=== PATIENT | male | born 1985 | race Caucasian/White ===

== ENCOUNTER 2017-05-09 16:37 | Inpatient (IN) | payer BC, OTHER ==
[~2017-05-09] VITALS: Ht 170.2 cm; Wt 61.2 kg
[2017-05-10 01:30] LABS: *AMPHETAMINE, URINE POSITIVE (NEGATIVE); *BARBITURATE, URINE NEGATIVE (NEGATIVE); *CANNABINOID, URINE POSITIVE (NEGATIVE); *COCCAINE, URINE NEGATIVE (NEGATIVE); *OPIATE, URINE POSITIVE (NEGATIVE); *PHENCYCLIDINE SCREEN,URINE NEGATIVE (NEGATIVE)
--- NOTE | 2017-05-10 01:30 | NUR ---
PRE-ADMISSION NOTE: Patient assessed in intake office at 0130 on 05/10/2017. Patient is ambulatory with steady gate, stable, AOx4, speech is clear. Patient states that he is here, in the [facility] "first time for Safety Detox from Benzodiazepines, Heroin and Meth". Patient states that he last used: Heroin IV: "I used 0,2 gram heroine in one syringe with Meth 0.2 gram on 05/10/2017 at 2245". Xanax PO: "2,67 mg on 05/10/2017 at 1800". Marijuana smoke: " 1 ball on 05/10/2017 at 1800" Patient's COWS 8, CIWA 7. The patient presented with anxiety, agitation, nervousness, , diaphoresis, abdominal cramps, headache, restless legs, and fatigue. Patient denies SI/HI. Breathing is even and unlabored. Patient denies SOB and chest pain. VS: T: 98'2; BP: 143/90; HR: 111; RR: 18; O2 SAT: 94%. Patient denies pain at this time. Patient reports NKA. Patient placed on Full Code, Regular Diet, Fall and Seizures Precautions. Patients denies Seizures Hx r/t withdrawal from substances. UDS test collected and sent to lab. Patient instructed on unit protocol of vitals Q4H and COWS/CIWA assessments. Patient verbalized understanding and agreement. Patient also instructed on policy regarding destruction of any controlled substances/prescriptions brought to facility, and handling of all medications. Patient verbalized understanding and agreement. Will complete admission assessment when patient is brought up to unit.
--- NOTE | 2017-05-10 01:39 | NUR ---
ADMISSION NOTE: New admission is a 31 year old male on serenity floor at 0139 on 05/10/2017. Patient states that he is here, in the [facility] "first time for Safety Detox from Xanax, Heroin, Meth, and Marijuana". Pre-assessment completed in intake. UDS Test provided. VS completed upon admission: VS: T: 98'2; BP: 143/90; HR: 111; RR: 18; O2 SAT: 94%. Patient reports NKA. Patient placed on Full Code, Regular Diet, Fall and Seizures Precautions. Patients denies Seizures Hx r/t withdrawal from substances. COWS 8, CIWA 7. The patient presented with anxiety, agitation, nervousness, diaphoresis, restless legs, insomnia and fatigue. Patient denies SI/HI. Height: 67 in, weight by standing scale: 135 lbs. Respirations are even and unlabored. Patient denies SOB and chest pain. Patient has no PCP. Patient admitted under the care of Carlin Plummer MD. Patient reports the following substances use: Xanax PO: Patient reports taking " during 14 years. 4 mg every other day since 2012. Last use was 2.67 mg on 05/09/17 at 1800". Patient reports relapsing "for years ago, and has been using at this rate for four years". Methamphetamine IV: Patient reports taking " during 3 years. Recently, 1 gram every day. Last use was 0.2 gram on 05/09/17 at 2245". Patient reports relapsing "for years ago, and has been using at this rate for four years". Heroin IV: "1 gram every day. Last use was 0.2 gram on 05/09/17 at 2245". Patient reports relapsing "for years ago, and has been using at this rate for four years". Marijuana smoke: Patient reports taking "a lot every day. Last use was 1 ball on 05/09/17 at 1800". Patient reports relapsing four months ago, and has been using at this rate for our months. Patient reports smoking "4 cigarettes daily during 20 years". Written smoking cessation education provided. Patient Verbalizes understanding. Patient did not brought home medications: verbally he explained that he "forgot in girlfriend's car all home medications." Home Medications: "Depakote PO 500 mg at 0900 and 2100". "Lexapro PO 20 mg 0900". "Advair/puff: 1 puff BID PRN" . "Albuterol, PRN". "Colazal PO 750 mg/3 tabs daily". Patient reports treatment history: "[facility] [place] ", [place] ,2010. Patient report being sober for 1 year and eight months since October, to June,". Patient reports Past Medical History: Anxiety, Depression, Asthma, RA, Ulcerative colitis, Ankylosing Spondylitis, Substance Abuse. Patient is ambulatory with steady gate, stable, AOx4, speech is soft and clear. Respirations unlabored and even. Lungs Sounds are clear bilaterally. Bowel Sounds active in all x4 quadrants. Last Bowel Movement was "05/09/17 at 1500". Skin is warm and dry to touch. Patient has on the back of the neck, on the buttocks, on the bilateral upper and lower extremities scabs from methamphetamine injections. Encouraged fluids as tolerated. Patient oriented to floor and room, explained how to use call light. Patient verbalized understanding. Safety measures on place. Call light within reach, bed in lowest position and locked, padded rails up bilaterally rails up bilaterally. Will continue to monitor closely.
[2017-05-10] MEDS ORDERED: diphenhydrAMINE 50 MG CAPSULE PO PRN (02:30)
[2017-05-10] MEDS ORDERED: LORAZEPAM 2 MG/1 ML VIAL IM PRN (02:30)
[2017-05-10] MEDS ORDERED: ACETAMINOPHEN 325 MG TABLET PO PRN (02:30)
[2017-05-10] MEDS ORDERED: DICYCLOMINE HCL 20 MG TABLET PO PRN (02:30)
[2017-05-10] MEDS ORDERED: ONDANSETRON ODT 4 MG TAB.RAPDIS SL PRN (02:30)
[2017-05-10] MEDS ORDERED: BUPRENORPHINE HCL 2 MG TAB.SUBL SL PRN (02:30)
[2017-05-10] MEDS ORDERED: MAG HYDROX/AL HYDROX/SIMETH 30 ML LIQUID UDC PO PRN (02:30)
[2017-05-10] MEDS ORDERED: LOPERAMIDE HCL 2 MG CAPSULE PO PRN ×2 (02:30)
[2017-05-10] MEDS ORDERED: MIRALAX 17 GM POWD.PACK PO PRN (02:30)
[2017-05-10] MEDS ORDERED: MAGNESIUM HYDROXIDE 30 ML LIQUID UDC PO PRN (02:30)
[2017-05-10] MEDS ORDERED: IBUPROFEN 400 MG TABLET PO PRN (02:30)
[2017-05-10] MEDS ORDERED: CLONIDINE HCL 0.1 MG TABLET PO PRN (02:30)
[2017-05-10] MEDS ORDERED: LORAZEPAM 1 MG TABLET PO PRN ×2 (02:30)
[2017-05-10] MEDS ORDERED: ONDANSETRON 4 MG/2 ML VIAL IM PRN (02:30)
[2017-05-10 03:12] LABS: BASOPHILS # (AUTO) 0.1 K/uL (0.0-8.0); BASOPHILS % (AUTO) 1.3 % (0.0-2.0); EOSINOPHILS # (AUTO) 0.4 K/uL (0.0-0.7); EOSINOPHILS % (AUTO) 5.3 % (0.0-7.0); HEMATOCRIT 47.4 % (40-50); LYMPHOCYTES # (AUTO) 2.7 K/UL (0.8-4.8); LYMPHOCYTES % (AUTO) 31.9 % (20.5-51.5); MEAN CORPUSCULAR HEMOGLOBIN 27.8 UUG (27.0-31.0); MEAN CORPUSCULAR HGB CONC 32 g/dL (32.0-37.0); MEAN CORPUSCULAR VOLUME 87.9 FL (82.0-92.0); MONOCYTES # (AUTO) 0.9 K/UL (0.1-1.30); MONOCYTES % (AUTO) 10.5 % (0.0-11.0); NEUTROPHILS # (AUTO) 4.4 K/UL (1.8-8.9); PLATELET COUNT (AUTO) 235 K/UL (150-450); RED BLOOD CELL COUNT(AUTO) 5.39 MIL/UL (4.7-6.1); WHITE BLOOD COUNT (AUTO) 8.5 K/UL (4.0-11.2)
[2017-05-10 03:20] LABS: ALANINE AMINOTRANSFERASE 52 U/L (16-63); ALKALINE PHOSPHATASE 91 U/L (50-136); AMYLASE 44 U/L (25-115); ASPARTATE AMINOTRANSFERASE 36 U/L (15-37); BILIRUBIN,TOTAL 0.3 mg/dL (0.2-1.0); CARBON DIOXIDE 38 mmol/L (21-32); CHLORIDE 100 mmol/L (98-107); GLUCOSE 89 mg/dL (74-106); LIPASE 89 U/L (73-393); MAGNESIUM 2.2 mg/dL (1.8-2.4); POTASSIUM 4.7 mmol/L (3.5-5.1); TOTAL PROTEIN, SERUM 7.8 g/dL (6.4-8.2); UREA NITROGEN, BLOOD 17 mg/dL (7-18)
[2017-05-10 03:31] LABS: THYROID STIMULATING HORMONE 1.734 mIU/mL (0.358-3.740)
[2017-05-10 03:32] LABS: ETHANOL < 3 MG/DL (0-0)
[2017-05-10 03:34] VITALS: BP 143/90
[2017-05-10 04:00] VITALS: BP 138/89
[2017-05-10] MEDS ORDERED: ALBU18HF2 INH (04:33)
[2017-05-10] MEDS ORDERED: DIVA500T2 PO (04:33)
[2017-05-10] MEDS ORDERED: BALS750C7 PO (04:33)
[2017-05-10] MEDS ORDERED: FLUT1DIS27 INH (04:33)
[2017-05-10] MEDS ORDERED: ESCI20TA PO (04:33)
--- NOTE | 2017-05-10 07:03 | NUR ---
END OF SHIFT NOTE: Patient is endorsed to day shift nurse in stable condition. Report given. Patient is a 31 year old male admitted to [facility] on 05/10/2017 for Benzodiazepines, Opioid, and Marijuana dependence. Patient admitted under the care of Carlin Plummer MD. Patient reports NKA. Patient placed on Full Code, Regular Diet, Fall and Seizures Precautions. Patients denies Seizures Hx r/t withdrawal from substances. Patient reports the following substances use: Xanax PO: Patient reports taking " during 14 years. 4 mg every other day since 2012. Last use was 2.67 mg on 05/09/17 at 1800". Patient reports relapsing "for years ago, and has been using at this rate for four years". Methamphetamine IV: Patient reports taking " during 3 years. Recently, 1 gram every day. Last use was 0.2 gram on 05/09/17 at 2245". Patient reports relapsing "for years ago, and has been using at this rate for four years". Heroin IV: "1 gram every day. Last use was 0.2 gram on 05/09/17 at 2245". Patient reports relapsing "for years ago, and has been using at this rate for four years". Marijuana smoke: Patient reports taking "a lot every day. Last use was 1 ball on 05/09/17 at 1800". Patient reports relapsing four months ago, and has been using at this rate for our months. Patient reports smoking "4 cigarettes daily during 20 years". Written smoking cessation education provided. Patient Verbalizes understanding. Patient did not brought home medications: verbally he explained that he "forgot in girlfriend's car all home medications." Patient reports Home Medications: "Depakote PO 500 mg at 0900 and 2100". "Lexapro PO 20 mg daily at 0900". "Advail/puff:1 puff BID PRN". "Albuterol/Vapr. PRN". "Colazal PO 750 mg/3 tabs daily". Patient report being sober for 1 year and 8 months since October, to June,". Past Medical History: Anxiety, Depression, Asthma, RA, Ulcerative colitis, Ankylosing Spondylitis, Substance Abuse". Upon last assessment at 0400: COWS 7, CIWA 4. The patient presented with anxiety, agitation, nervousness, diaphoresis, restless legs, insomnia and fatigue. Patient denies SI/HI. VS WNL. Respirations even and unlabored. Patient denies SOB and chest pain. Skin is warm and dry to touch. Patient has scabs from Methamphetamine picks on the back of the neck, on the buttocks, on the bilateral upper and lower extremities. Encouraged fluids as tolerated. No PRN Medications administrated. Patient slept 2 hours, Intake 473 ml, Voided x1. All needs met. Safety measures on place. Call light within reach, bed in lowest position and locked, padded rails up bilaterally rails up bilaterally.
--- NOTE | 2017-05-10 07:57 | NUR ---
START OF SHIFT Received pt this Am AOx4. Patient admitted last night with no taper started yet. He reports feeling "okay" so far but has back pain and tiredness. Last CIWA 4 COWS 7 per night nurse. No medications given yet per fast food shift lead. He slept 2 hours. Vital signs stable. Encouraged patient to increase fluid intake. Encouraged patient to notify RN when S/S of W/D worsen. Will provide safe and supportive environment. will monitor.
[2017-05-10 08:00] VITALS: BP 138/97
[2017-05-10] MEDS ORDERED: TUBERCULIN,PURIF.PROT.DERIV. 5 TU/0.1 ML TEST ID ONE (09:00)
--- NOTE | 2017-05-10 09:00 | NUR ---
COWS 14 CIWA 8. Patient states he does not want to take any medication yet for w/d symptoms.
[2017-05-10] MEDS: MULTIVITAMINS,THERAPEUTIC TABLET PO SCH (09:06)
[2017-05-10] MEDS ORDERED: PATIENT MAY USE OWN MED- MD OK INH PRN (11:30)
[2017-05-10] MEDS: BUPRENORPHINE HCL 2 MG TAB.SUBL SL SCH ×3 (11:54→20:52)
[2017-05-10 12:00] VITALS: BP 137/81
--- NOTE | 2017-05-10 12:27 | NUR ---
Therapist prompted client to attend daily group therapy sessions at 11am and 3:30pm. Client stated that he would attend the next group.
[2017-05-10 16:00] VITALS: BP 135/91
--- NOTE | 2017-05-10 16:00 | NUR ---
ALBUTEROL ADMINISTERED PER RT PER PT REQUEST. RR EVEN AND UNLABORED. NO DISTRESS NOTED.
[2017-05-10] MEDS ORDERED: PATIENT MAY USE OWN MED- MD OK INH SCH (17:00)
[2017-05-10] MEDS ORDERED: Medication Not On Formulary EA (Escitalopram Oxalate (Lexapro) 1 TAB) PO SCH (17:00)
[2017-05-10] MEDS: NEOMY/BACITRAC/POLYMI OINT 28.35 GM TUBE TOP SCH (17:02)
[2017-05-10] MEDS: DIVALPROEX 500 MG TABLET.DR PO SCH ×2 (17:33→20:52)
[2017-05-10] MEDS: ESCITALOPRAM OXALATE 10 MG TABLET PO SCH (17:33)
[2017-05-10] MEDS: ALBUTEROL SULFATE 2.5 MG/3 ML NEBU NEB PRN (18:00)
--- NOTE | 2017-05-10 18:28 | NUR ---
END OF SHIFT NOTE Patient started on 4 day Subutex taper this shift and tolerating well. Patient given TB test during shift. No PRNs given as detox meds are effective. Patient slept in bed most of shift. He did attend morning group therapy. Last COWS 10 CIWA 7. VItal signs stable. Pt got breathing tx albuterol per pt request. Patient compliant with tx plan and medications. All needs met. All safety measures in place. Will pass shift report to oncoming nurse
--- NOTE | 2017-05-10 19:15 | NUR ---
Start of Shift Note: Patient is a 31 y/o male admitted 05/10/17 for Heroin/Xanax/Meth/Marijuana use. Patient has medical history of Anxiety, Depression, Asthma, Rheumatoid Arthritis, Ulcerative Colitis, & Ankylosing Spondylitis. Patient denies history of seizures. Patinet is on a 4-day Subutex taper and tolerating well. Last COWS 10 CIWA 7. Patient was given PRN Ventolin during day shift. Patient is alert & oriented x4. No shortness of breath noted at this time. Respiration even & unlabored. Abdomen soft & non-distended. No nausea/vomiting noted. Patient presented with complains of sweating, chills, 5/10 body aches, loss of appetite & anxiety. Bilateral hand tremors noted. Patient denies hallucinations. Safety precautions are in place. Bed locked in lowest position. Both side rails up. Call light within pt's reach. Will continue to monitor patient.
[2017-05-10 20:00] VITALS: BP 145/92
[2017-05-10] MEDS: METHOCARBAMOL 750 MG TABLET PO PRN (20:53)
[2017-05-10] MEDS: GABAPENTIN 300 MG CAPSULE PO SCH (20:53)
--- NOTE | 2017-05-10 20:53 | NUR ---
PRN Clonidine & Robaxin Patient complains of sweating, chills, anxiety & 5/10 body aches. Patient appears restless & anxious. PRN Clonidine & Robaxin administered as ordered. Will reassess in 1 hour. Will continue to monitor.
--- NOTE | 2017-05-10 21:53 | NUR ---
PRN Reassessment Patient verbalized decrease in sweating, chills & anxiety and slight relief in body aches. Patient lying in bed and appears comfortable. Will continue to monitor patient.
[2017-05-11] VITALS: BP 122/77
[2017-05-11] MEDS: ALBUTEROL SULFATE 2.5 MG/3 ML NEBU NEB PRN (02:32)
--- NOTE | 2017-05-11 02:32 | NUR ---
PRN Albuterol Patient complaining of shortness of breath. Wheezing noted upon auscultation. PRN Albuterol via nebulizer administered by RT with relief. Will continue to monitor patient.
[2017-05-11 04:00] VITALS: BP 125/75
--- NOTE | 2017-05-11 07:11 | NUR ---
End of Shift Note: Pt had an uneventful night. Pt continues on his Subutex taper and tolerating well. Pt remained stable and vitals remains WNL. Pt was given PRN Robaxin, Clonidine & Albuterol during my shift and were effective. Pt remained compliant with medications. Pt still asleep at this time with no s/s of distress noted. Pt was able to sleep for a total of 7 hours. Consumed 1350 ml of fluids. Voided 2x with no bowel movement. All needs attended met. Safety measures in place. Will endorse pt to day shift nurse.
--- NOTE | 2017-05-11 07:48 | NUR ---
START OF SHIFT Received pt this Am AOx4.Patient continues on 4 day Subutex taper and tolerating well. Patient states he feels "crappy" and slept on and off last night. Last CIWA 3 COWS 5 per night nurse.PRN Clonidine, Robaxin, Albuterol tx given per night nurse. He slept 7 hours. Vital signs stable. Encouraged patient to increase fluid intake. Encouraged patient to notify RN when S/S of W/D worsen. Encouraged pt to attend groups and activities to learn new coping skills. Will provide safe and supportive environment. will monitor.
[2017-05-11 08:14] VITALS: BP 115/78
[2017-05-11] MEDS: FLUTICASONE/VILANTEROL 1 EACH BLST.W.DEV INH SCH (08:18)
[2017-05-11] MEDS: NEOMY/BACITRAC/POLYMI OINT 28.35 GM TUBE TOP SCH ×2 (08:19→16:28)
[2017-05-11] MEDS: GABAPENTIN 300 MG CAPSULE PO SCH ×3 (08:20→22:11)
[2017-05-11] MEDS: DIVALPROEX 500 MG TABLET.DR PO SCH ×2 (08:20→22:11)
[2017-05-11] MEDS: ESCITALOPRAM OXALATE 10 MG TABLET PO SCH (08:20)
[2017-05-11] MEDS: MULTIVITAMINS,THERAPEUTIC TABLET PO SCH (08:20)
[2017-05-11] MEDS: MESALAMINE 400 MG CAPSULE.ER PO SCH (08:20)
[2017-05-11] MEDS ORDERED: PATIENT MAY USE OWN MED- MD OK PO SCH (09:00)
[2017-05-11] MEDS ORDERED: BUPRENORPHINE HCL 2 MG TAB.SUBL SL SCH (09:00)
[2017-05-11] MEDS ORDERED: LORAZEPAM 1 MG TABLET PO PRN ×2 (11:15)
[2017-05-11] MEDS: LIDOCAINE 5% PATCH TD SCH (11:51)
[2017-05-11 12:00] VITALS: BP 129/78
[2017-05-11 13:09] LABS: HEPATITIS B SURFACE AG Negative (Negative)
[2017-05-11] MEDS: CLONIDINE HCL 0.1 MG TABLET PO SCH ×2 (14:37→22:11)
[2017-05-11] MEDS: BUPRENORPHINE HCL 2 MG TAB.SUBL SL SCH ×2 (14:37→22:11)
[2017-05-11] MEDS: BACLOFEN 10 MG TABLET PO SCH ×2 (14:37→22:11)
[2017-05-11 16:00] VITALS: BP 119/84
--- NOTE | 2017-05-11 18:39 | NUR ---
END OF SHIFT NOTE Patient continued on 4 day Subutex taper this shift and tolerating well. No PRNs given as detox meds are effective. He attended groups and activities and socialized with peers during shift. He reported feeling better than yesterday. Last COWS 10 CIWA 9. Vital signs stable. Patient compliant with tx plan and medications. All needs met. All safety measures in place. Will pass shift report to oncoming nurse.
[2017-05-11 20:00] VITALS: BP 122/73
[2017-05-11] MEDS: ARIPIPRAZOLE 5 MG TABLET PO SCH (22:11)
[2017-05-11] MEDS: METHOCARBAMOL 750 MG TABLET PO PRN (23:58)
[2017-05-11] MEDS: HYDROXYZINE PAMOATE 25 MG CAPSULE PO PRN (23:58)
--- NOTE | 2017-05-11 23:58 | NUR ---
PRN Robaxin & Vistaril Patient complains of 8/10 body aches and anxiety. Patient noted with facial grimacing and restlessness. PRN Robaxin & Vistaril administered as ordered. Will monitor for effectiveness of medication.
[2017-05-12] VITALS: BP 112/61
--- NOTE | 2017-05-12 00:58 | NUR ---
PRN Reassessment Patient asleep in bed and appears comfortable. No shortness of breath noted. Respiration even & unlabored. Safety precautions are in place. Will continue to monitor patient.
[2017-05-12 04:00] VITALS: BP 123/75
--- NOTE | 2017-05-12 04:00 | NUR ---
COWS deferred Patient asleep in bed and appears comfortable. Unable to assess Cows at this time. Will continue to monitor patient.
--- NOTE | 2017-05-12 07:01 | NUR ---
End of Shift Note: Pt had an uneventful night. Pt continues on his Subutex taper and tolerating well. Pt remained stable and vitals remains WNL. Pt was given PRN Vistaril & Robaxin during my shift and were effective. Pt remained compliant with medications and treatment plan. Pt still asleep at this time with no s/s of distress noted. Pt was able to sleep for a total of 8 hours. Consumed 400 ml of fluids. Voided 1x with no bowel movement. All needs attended met. Safety measures in place. Will endorse pt to day shift nurse.
--- NOTE | 2017-05-12 07:30 | NUR ---
Start of shift note; Patient is AOX4. Patient is a 31 year old male admitted on 05/10/17 for Opiate/Benzo dependence. Patient was placed on a 4 day Subutex taper, no adverse reactions noted. Patient is on full code status, regular diet. Patient is on fall and seizure precaution. All safety measures secured. Will continue to monitor patient.
[2017-05-12 08:00] VITALS: BP 102/62
[2017-05-12] MEDS: FLUTICASONE/VILANTEROL 1 EACH BLST.W.DEV INH SCH (09:00)
[2017-05-12] MEDS: LIDOCAINE 5% PATCH TD SCH (09:39)
[2017-05-12] MEDS: ESCITALOPRAM OXALATE 10 MG TABLET PO SCH (09:40)
[2017-05-12] MEDS: GABAPENTIN 300 MG CAPSULE PO SCH ×3 (09:40→20:30)
[2017-05-12] MEDS: DIVALPROEX 500 MG TABLET.DR PO SCH ×2 (09:40→20:30)
[2017-05-12] MEDS: BACLOFEN 10 MG TABLET PO SCH ×3 (09:40→20:31)
[2017-05-12] MEDS: BUPRENORPHINE HCL 2 MG TAB.SUBL SL SCH ×3 (09:40→20:31)
[2017-05-12] MEDS: MESALAMINE 400 MG CAPSULE.ER PO SCH (09:40)
[2017-05-12] MEDS: MULTIVITAMINS,THERAPEUTIC TABLET PO SCH (09:40)
[2017-05-12] MEDS: NEOMY/BACITRAC/POLYMI OINT 28.35 GM TUBE TOP SCH ×2 (09:41→16:47)
[2017-05-12] MEDS: CLONIDINE HCL 0.1 MG TABLET PO SCH ×3 (09:41→20:31)
[2017-05-12 12:00] VITALS: BP 109/61
[2017-05-12 16:00] VITALS: BP 97/80
--- NOTE | 2017-05-12 16:38 | NUR ---
Therapist prompted client about group times. Client reported he did not attend group today because he was too tired.
--- NOTE | 2017-05-12 18:22 | NUR ---
End of shift note; Patient is AOX4. Patient remained compliant with treatment plan and medication regime. Medications were effective in reducing withdrawal symptoms. All safety measures secured. Met all needs.
--- NOTE | 2017-05-12 19:15 | NUR ---
Start of Shift Note: Patient is a 32 y/o male admitted 05/10/17 for Heroin/Xanax/Meth/Marijuana use. Patient has medical history of Anxiety, Depression, Asthma, Rheumatoid Arthritis, Ulcerative Colitis, & Ankylosing Spondylitis. Patient denies history of seizures. Patient is on a 4-day Subutex taper and tolerating well. Last COWS 3 CIWA 2. No PRN medications given during day shift. Patient is alert & oriented x4. No shortness of breath noted at this time. Respiration even & unlabored. Abdomen soft & non-distended. No nausea/vomiting noted. Patient presented with complains of sweating, chills, 7/10 lower back ache, & anxiety. Bilateral hand tremors noted. Patient denies hallucinations. Safety precautions are in place. Bed locked in lowest position. Both side rails up. Call light within pt's reach. Will continue to monitor patient.
[2017-05-12 20:00] VITALS: BP 116/77
[2017-05-12] MEDS: ARIPIPRAZOLE 5 MG TABLET PO SCH (20:31)
--- NOTE | 2017-05-12 20:58 | NUR ---
RN NOTE Patient accidentally swallowed his Subutex 2mg. Dr. Leos is aware with orders to give another Subutex 2mg SL. Orders noted and carried out. Administered SUbutex 2mg for a COWS 10. Will continue to monitor patient.
[2017-05-12] MEDS ORDERED: BUPRENORPHINE HCL 2 MG TAB.SUBL SL ONE (21:00)
[2017-05-13] VITALS: BP 104/62
[2017-05-13 04:00] VITALS: BP 120/67
--- NOTE | 2017-05-13 07:04 | NUR ---
End of Shift Note: Pt had an uneventful night. Pt continues on his Subutex taper and tolerating well. Pt remained stable and vitals remains WNL. No PRN medications given during my shift. Last COWS 10 CIWA 4. Pt reported that medication is effective in controlling withdrawal medications. Pt remained compliant with medications and treatment plan. Pt still asleep at this time with no s/s of distress noted. Pt was able to sleep for a total of 9 hours. Consumed 1535 ml of fluids. Voided 3x with no bowel movement. All needs attended met. Safety measures in place. Will endorse pt to day shift nurse.
--- NOTE | 2017-05-13 07:30 | NUR ---
START OF SHIFT NOTE Received report from night, 32 year old male admitted 05/10/17 for Heroin/Xanax/Meth/Marijuana dependence. Patient has medical history of Anxiety, Depression, Asthma, Rheumatoid Arthritis, Ulcerative Colitis, & Ankylosing Spondylitis. Patient denies history of seizures. Patient is on a 4-day Subutex taper and tolerating well. No PRN medications given per night nurse, slept for 9 hours. Upon assessment pt is alert awake oriented x4 in stable condition. Educated regarding plan of care for the day and medication regimen with good verbal understanding. Safety measures in place. Will cont to monitor.
[2017-05-13 08:00] VITALS: BP 108/63
[2017-05-13] MEDS: GABAPENTIN 300 MG CAPSULE PO SCH ×3 (08:22→20:47)
[2017-05-13] MEDS: MESALAMINE 400 MG CAPSULE.ER PO SCH (08:22)
[2017-05-13] MEDS: MULTIVITAMINS,THERAPEUTIC TABLET PO SCH (08:23)
[2017-05-13] MEDS: BACLOFEN 10 MG TABLET PO SCH ×3 (08:23→20:47)
[2017-05-13] MEDS: ESCITALOPRAM OXALATE 10 MG TABLET PO SCH (08:23)
[2017-05-13] MEDS: CLONIDINE HCL 0.1 MG TABLET PO SCH ×2 (08:23→20:48)
[2017-05-13] MEDS: NEOMY/BACITRAC/POLYMI OINT 28.35 GM TUBE TOP SCH ×2 (08:24→16:11)
[2017-05-13] MEDS: LIDOCAINE 5% PATCH TD SCH (08:24)
[2017-05-13] MEDS: FLUTICASONE/VILANTEROL 1 EACH BLST.W.DEV INH SCH (08:24)
[2017-05-13] MEDS: DIVALPROEX 500 MG TABLET.DR PO SCH ×2 (08:25→20:48)
[2017-05-13] MEDS ORDERED: BUPRENORPHINE HCL 2 MG TAB.SUBL SL SCH (09:00)
[2017-05-13 12:00] VITALS: BP 110/67
[2017-05-13] MEDS ORDERED: DIPH50CA37 PO (14:16)
[2017-05-13] MEDS ORDERED: HYDR-3895 PO (14:16)
[2017-05-13] MEDS ORDERED: DIVA500T2 PO (14:16)
[2017-05-13] MEDS ORDERED: BACL10TA PO (14:16)
[2017-05-13] MEDS ORDERED: ESCI10TA PO (14:16)
[2017-05-13] MEDS ORDERED: DICY20TA28 PO (14:16)
[2017-05-13] MEDS ORDERED: CLON0.1T14 PO (14:16)
[2017-05-13] MEDS ORDERED: ARIP5TAB10 PO (14:16)
[2017-05-13] MEDS ORDERED: GABA-534 PO ×2 (14:16)
[2017-05-13] MEDS ORDERED: IBUP-1953 PO (14:16)
[2017-05-13] MEDS ORDERED: LIDO30AD10 TD (14:16)
[2017-05-13 16:00] VITALS: BP 107/63
[2017-05-13 17:20] LABS: *AMPHETAMINE, URINE POSITIVE (NEGATIVE); *BARBITURATE, URINE NEGATIVE (NEGATIVE); *CANNABINOID, URINE POSITIVE (NEGATIVE); *COCCAINE, URINE NEGATIVE (NEGATIVE); *OPIATE, URINE NEGATIVE (NEGATIVE); *PHENCYCLIDINE SCREEN,URINE NEGATIVE (NEGATIVE)
--- NOTE | 2017-05-13 18:31 | NUR ---
END OF SHIFT NOTE Patient is AOX4. Patient is a 32 year old male admitted for Heroin/Xanax/Meth/Marijuana dependence. Pt is full code regular diet on fall and seizure precaution denies any food or drug allergies. Pt completed his taper tolerated well.Pt remains compliant with the treatment plan. Patient encouraged adequate PO fluid intake as tolerated. During shift patient did not receive any PRN medication. Patient encouraged to attend group therapies/sessions to learn new coping skills to prevent relapse, patient denies SI/HI. Pt scheduled for discharge in AM, urine drug screen completed and placed in the chart. Safety measures in place. Call light kept within reach. Will pass report to night nurse.
--- NOTE | 2017-05-13 19:15 | NUR ---
START OF SHIFT: Patient is a 32 y/o male admitted 05/10/17 for Heroin/Xanax/Meth/Marijuana use. Patient has medical history of Anxiety, Depression, Asthma, Rheumatoid Arthritis, Ulcerative Colitis, & Ankylosing Spondylitis. Patient denies history of seizures. Patient completed his 4-day Subutex taper and tolerated well. Last COWS 4 CIWA 3 at 19:00 . Patient is alert & oriented x4. No shortness of breath noted at this time. Respiration even & unlabored. Abdomen soft & non-distended. No nausea/vomiting noted. Patient presented with complains of sweating, 5/10 lower back ache, & anxiety. Patient denies hallucinations. Pt. will be D/C tomorrow. Safety precautions are in place. Bed locked in lowest position. Both side rails up. Call light within pt's reach. Will continue to monitor patient.
[2017-05-13 20:00] VITALS: BP 124/65
[2017-05-13] MEDS: METHOCARBAMOL 750 MG TABLET PO PRN (20:47)
[2017-05-13] MEDS: ARIPIPRAZOLE 5 MG TABLET PO SCH (20:47)
[2017-05-13] MEDS: HYDROXYZINE PAMOATE 25 MG CAPSULE PO PRN (20:49)
--- NOTE | 2017-05-13 21:00 | NUR ---
PRN ROBAXIN, VISTARIL, BENADRYL Pt. complains of sleeplessness, muscle spasm, increased level of anxiety. PRN ROBAXIN, VISTARIL, BENADRYL given as ordered. Safety measures in place : bed on lowest position with side rails x2 up for safety, call light within reach. Will continue to monitor closely and offer help.
--- NOTE | 2017-05-13 22:00 | NUR ---
REASSESSMENT JUANCARLOS NUNEZ BENADRYL Pt. is sleeping, RR=16, unlabored and even. . Safety measures in place : bed on lowest position with side rails x2 up for safety, call light within reach. Will continue to monitor closely and offer help.
--- NOTE | 2017-05-14 06:35 | NUR ---
END OF SHIFT: Patient is a 32 y/o male admitted 05/10/17 for Heroin/Xanax/Meth/Marijuana use. Patient has medical history of Anxiety, Depression, Asthma, Rheumatoid Arthritis, Ulcerative Colitis, & Ankylosing Spondylitis. Patient denies history of seizures. Patient completed his 4-day Subutex taper and tolerated well. Patient is alert & oriented x4. No shortness of breath noted at this time. Pt remains compliant with the treatment plan. PRN BENADRYL, Robaxin, VISTARIL given during my shift. V/S remain WNL. RR=16, even and unlabored, lungs clear upon auscultation, abdomen soft and non- distended. Pt denies nausea, vomiting and diarrhea. LAST CIWA=0 ,COWS=1 at 0400 , INTAKE= 1700 ml, voided x 2, slept 9 hours.Pt. will be D/in A.M. Safety precautions are in place. Bed locked in lowest position. Both side rails up. Call light within pt's reach. Will continue to monitor patient.
--- NOTE | 2017-05-14 07:31 | NUR ---
Start of shift note; Patient is AOX4. Patient is a 31 year old male admitted on 05/10/17 for Opiate/Benzo dependence. Patient was placed on a 4 day Subutex taper, completed taper without any adverse reactions noted. Patient is on full code status, regular diet. Patient is on fall and seizure precaution. Patient is medically cleared for discharge today. All safety measures secured. Will continue to monitor patient.
[2017-05-14 08:00] VITALS: BP 102/62
[2017-05-14] MEDS: FLUTICASONE/VILANTEROL 1 EACH BLST.W.DEV INH SCH (09:00)
[2017-05-14] MEDS: MULTIVITAMINS,THERAPEUTIC TABLET PO SCH (09:02)
[2017-05-14] MEDS: GABAPENTIN 300 MG CAPSULE PO SCH ×2 (09:02→15:23)
[2017-05-14] MEDS: MESALAMINE 400 MG CAPSULE.ER PO SCH (09:03)
[2017-05-14] MEDS: CLONIDINE HCL 0.1 MG TABLET PO SCH (09:03)
[2017-05-14] MEDS: ESCITALOPRAM OXALATE 10 MG TABLET PO SCH (09:03)
[2017-05-14] MEDS: BACLOFEN 10 MG TABLET PO SCH ×2 (09:03→15:23)
[2017-05-14] MEDS: DIVALPROEX 500 MG TABLET.DR PO SCH (09:03)
[2017-05-14] MEDS: LIDOCAINE 5% PATCH TD SCH (09:04)
[2017-05-14] MEDS: NEOMY/BACITRAC/POLYMI OINT 28.35 GM TUBE TOP SCH ×2 (09:04→16:35)
[2017-05-14 12:00] VITALS: BP 115/64
[2017-05-14 16:00] VITALS: BP 110/52
--- NOTE | 2017-05-14 18:33 | NUR ---
D/C NOTE Pt is A/O x4. V/S remain WNL. Pt denies SI/HI or hallucinations. Pt shows no s/s of acute withdrawal at this time, and is stable. has medically cleared pt for d/c. Education on Hepatitis C, smoking cessation and medication side effects provided. Pt verbalizes understanding. All pt belongings are in belonging bag, including prescriptions, pt did not have any home medications. Refuses PNU vaccination. Pt is being accompanied by BANK WORKER at this time. All needs met.
== END 2017-05-14 18:33 | DRG 895 ==
LOC: SRC 05-10 00:42
PROVIDERS: ADMIT Internal Medicine; ATTEND Internal Medicine
PROC: HZ2ZZZZ Detoxification Services for Substance Abuse Treatment (ICD-10-PCS; principal; 2017-05-10)
PROC: HZ31ZZZ Individual Counseling for Substance Abuse Treatment, Behavioral (ICD-10-PCS; 2017-05-10)
PROC: HZ41ZZZ Group Counseling for Substance Abuse Treatment, Behavioral (ICD-10-PCS; 2017-05-11)
DX: F11.23 Opioid dependence with withdrawal (principal); K51.90 Ulcerative colitis, unspecified, without complications; E87.3 Alkalosis; J45.20 Mild intermittent asthma, uncomplicated; F15.23 Other stimulant dependence with withdrawal; I15.9 Secondary hypertension, unspecified; F31.9 Bipolar disorder, unspecified; F17.210 Nicotine dependence, cigarettes, uncomplicated; E86.0 Dehydration; F12.90 Cannabis use, unspecified, uncomplicated; F13.10 Sedative, hypnotic or anxiolytic abuse, uncomplicated; Z83.79 Family history of other diseases of the digestive system; Z81.1 Family history of alcohol abuse and dependence; Z81.4 Family history of other substance abuse and dependence; Z79.899 Other long term (current) drug therapy
CPT/HCPCS: 36415; 70030-TC; 80164; 80307; 80324; 80346; 80349; 80361; 83690; 83735; 84443; 85025; 86580; 86592; 86705; 86803; 87340; 87806; 93005; 94640; 94664; A4663; G0480; Q0163